=== PATIENT | female | born 1945 | race Caucasian/White ===

== ENCOUNTER 2016-07-17 22:46 | Emergency (ER) | payer OTHER ==
[2016-07-17 23:19] VITALS: RESP 16
--- NOTE | 2016-07-17 23:27 | EDPHY ---
H & P Time Seen by Provider: 07/17/16 22:48 HPI/ROS: CHIEF COMPLAINT: Alcohol intoxication HISTORY OF PRESENT ILLNESS: 71-year-old female presents to the emergency department by ambulance with acute alcohol intoxication. Patient admits to having several drinks this evening. She thinks that she is in the emergency department because she fell. She has no headache. No neck pain. No chest pain or difficulty breathing. Denies any other trauma or injury. She denies anticoagulant medication. Currently she has no complaints. REVIEW OF SYSTEMS: Constitutional: No fever, no chills. Eyes: No double or blurry vision. ENT: No sore throat. Respiratory: No cough, no shortness of breath. Cardiac: No chest pain. Gastrointestinal: No abdominal pain, vomiting or diarrhea. Genitourinary: No dysuria. Musculoskeletal: No neck or back pain. Skin: No rashes. Neurological: No headache. 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 No physical signs of trauma to her head. She is mentating normally and answering questions appropriately. She smells of alcohol. Eyes: Pupils equal and round. Extraocular motions are all intact. ENT: Mouth: Mucous membranes moist. Respiratory: No wheezing, rhonchi, or rales, lungs are clear to auscultation. Cardiovascular: Regular rate and rhythm. Gastrointestinal: Abdomen is soft and nontender, no masses, no rebound or guarding, bowel sounds normal. Neurological: Alert and oriented x 3, cranial nerves II through XII grossly intact Skin: Warm and dry, no rashes. Musculoskeletal: Nontender to palpate along the cervical, thoracic or lumbar spine. Neck is supple. Extremities: Full range of motion and no peripheral edema. Psychiatric: Patient is oriented X 3, there is no agitation. Constitutional: Initial Vital Signs Temperature (C) 36.3 C 07/17/16 23:07 Heart Rate 68 07/17/16 23:07 Respiratory Rate 16 07/17/16 23:07 Blood Pressure 148/98 H 07/17/16 23:07 O2 Sat (%) 91 L 07/17/16 23:07 O2 Delivery Mode Room Air Allergies/Adverse Reactions: No Allergies [NKDA] Allergy (Verified 07/17/16 23:25) Home Medications: Medication Instructions Recorded NO HOME MEDICATIONS 09/07/10 Medical Decision Making ED Course/Re-evaluation: 71-year-old female presents to the emergency department with acute alcohol intoxication. Patient was able to ambulate unassisted. She has no complaints. The nurse talked with the daughter on the phone and states that since the patient had her CVA over 20 years ago, the patient has become an alcoholic. She drinks daily. Daughter states that this is not abnormal behavior for her. The patient has been medically cleared and is awaiting transport back home. The nurse spoke with the patient's daughter via phone. The daughter is refusing to come pick the patient up. She the patient will be [facility] to the [facility]. Differential Diagnosis: Altered mental status including but not limited to hypoglycemia, infectious process, electrolyte abnormality, head injury and intoxicants. Departure - Departure Disposition: Home, Routine, Self-Care Clinical Impression: Alcoholic intoxication Qualifiers: Complication of substance-induced condition: uncomplicated Qualified Code(s): F10.120 - Alcohol abuse with intoxication, uncomplicated Condition: Good Instructions: Alcohol Intoxication (ED), Abuse of Alcohol (ED) Additional Instructions: You should not drink alcohol in excess. Referrals: [facility] [Outside] - As per Instructions
[2016-07-18 00:31] VITALS: BP 146/66; PULSE 58; TEMP 97.5; O2SAT 98
== END 2016-07-18 00:45 | disposition home or self-care (01) ==
LOC: EDUNIT#
DX: F10.120 Alcohol abuse with intoxication, uncomplicated (principal); F17.200 Nicotine dependence, unspecified, uncomplicated; Z86.73 Personal history of transient ischemic attack (TIA), and cerebral infarction without residual deficits

== ENCOUNTER 2018-03-28 11:50 | Emergency (ER) | payer OTHER, MEDICAID ==
--- NOTE | 2018-03-28 11:56 | EDPHY ---
H & P Time Seen by Provider: 03/28/18 11:54 HPI/ROS: CHIEF COMPLAINT: Head injury, expressive aphasia HISTORY OF PRESENT ILLNESS: 72-year-old female with prior intracranial hemorrhage and residual left-sided weakness presents as a stroke alert after a fall with difficulty speaking. She was walking across a crosswalk, slipped on ice and fell backwards, striking her head on the icy patch. EMS arrived and the patient refused transport, stating that she felt fine. EMS drove her to the [facility] and a friend met her there. She was unable to hear well and had difficulty speaking to her friend, so EMS was called again. She currently feels that her speech and hearing are normal. She has ongoing left-sided weakness, with no recent change. Denies headache. REVIEW OF SYSTEMS: complete 10 point ROS reviewed and is negative except for the noted elements in the HPI Source: Patient - Medical/Surgical History Hx Asthma: No Hx Chronic Respiratory Disease: No Hx Diabetes: No Hx Cardiac Disease: No Hx Renal Disease: No Hx Cirrhosis: No Hx Alcoholism: Yes Hx HIV/AIDS: No Hx Splenectomy or Spleen Trauma: No Other PMH: I[facility] 2015 - Social History Smoking Status: Current every day smoker Alcohol Use: Sober Drug Use: None Additional Social History: - Physical Exam Exam: Initial exam on arrival: General Appearance: Alert, pleasant, speech is clear and fluent Eyes: Pupils equal and round, no conjunctival pallor ENT, Mouth: Mucous membranes moist Neck: In cervical spine collar Respiratory: Lungs are clear to auscultation anteriorly Cardiovascular: Regular rate and rhythm Gastrointestinal: Abdomen is soft and nontender Neurological: A&O, normal speech, left-sided weakness Skin: Warm and dry Extremities: Normal inspection Psychiatric: Mood and affect normal Constitutional: Initial Vital Signs Heart Rate 78 03/28/18 12:10 Respiratory Rate 18 03/28/18 12:10 Blood Pressure 177/101 H 03/28/18 12:10 O2 Sat (%) 96 03/28/18 12:10 O2 Delivery Mode Room Air Allergies/Adverse Reactions: No Allergies [NKDA] Allergy (Verified 03/28/18 12:10) Home Medications: Medication Instructions Recorded NO HOME MEDICATIONS 09/07/10 Medical Decision Making - Diagnostics EKG Interpretation: EKG interpreted by me reveals NSR, rate 74, inferior Q waves c/w prior IMI, prolonged QT interval. Imaging Results: Head CT 03/28/18 11:52 Impression: 1. No acute intracranial process or cervical spine fracture. 2. Cystic encephalomalacia of the right MCA territory. Superimposed acute infarct in this region cannot be excluded by imaging. 3. Mild spondylosis of the cervical spine with intervally advanced grade 1 anterolisthesis of C4 on C5, probably degenerative. Findings and recommendations discussed with CHRISTINE ARMENDARIZ at 1223 hour, 2018. Cervical Spine CT 03/28/18 11:53 Impression: 1. No acute intracranial process or cervical spine fracture. 2. Cystic encephalomalacia of the right MCA territory. Superimposed acute infarct in this region cannot be excluded by imaging. 3. Mild spondylosis of the cervical spine with intervally advanced grade 1 anterolisthesis of C4 on C5, probably degenerative. Findings and recommendations discussed with CHRISTINE ARMENDARIZ at 1223 hour, 2018. Imaging: Discussed imaging studies w/ call center trainer Radiologist ED Course/Re-evaluation: This patient presents as a stroke alert. I saw the patient on arrival. Speech is clear and she has ongoing left-sided weakness secondary to prior CVA, without recent change. Sx c/w CHI, no clinical evidence for stroke. tpa not indicated. CT scan of the brain reveals right encephalomalacia, no acute hemorrhage or infarct. CT of the cervical spine reveals no acute findings. Results discussed with the patient and the cervical spine was cleared by me after the negative CT scan of the cervical spine. No midline tenderness and ROM without pain. Clinical presentation consistent with closed head injury. Repeat neurologic exam remains unchanged. She has clear speech and can clearly tell me exactly what happened this afternoon. According to the ED RN, the patient is perseverating slightly, though I have not noticed this. 1330: Repeat neuro exam: alert, oriented x 3, CN II-XII intact, motor: left sided weakness, sensory intact to light touch, steady gait. We are awaiting her daughter. 1430: daughter is planning to knot picker cloth pt around 5pm (after work). Pt remains stable, asymptomatic, ready to go home. CHI precautions given. Differential Diagnosis: Altered mental status including but not limited to hypoglycemia, infectious process, electrolyte abnormality, head injury, CVA, and intoxicants. - Data Points Laboratory Results: Laboratory Results 03/28/18 11:56 03/28/18 11:56 Point of Care Test Results: Chemistry 03/28/18 03/28/18 11:59 11:56 POC Sodium 144 mEq/L mEq/L (135-145) POC Potassium 4.0 mEq/L mEq/L (3.3-5.0) POC Chloride 103 mEq/L mEq/L (97-110) POC BUN 9 mg/dL mg/dL (7-23) POC Creatinine 0.8 mg/dL mg/dL (0.6-1.0) POC Glucose 140 mg/dL H mg/dL (70-100) POC Troponin I 0.02 ng/mL ng/mL (0.00-0.08) ISTAT H&H 03/28/18 11:56 POC Hgb 16.7 gm/dL H gm/dL (12.6-16.3) POC Hct 49 % H % (38-47) Departure - Departure Disposition: Home, Routine, Self-Care Clinical Impression: Concussion Qualifiers: Encounter type: initial encounter Loss of consciousness presence/duration: without LOC Qualified Code(s): S06.0X0A - Concussion without loss of consciousness, initial encounter Condition: Good Instructions: Concussion (ED) Additional Instructions: 1. Cognitive rest while symptomatic. Limit screen time (phone, TV, computer) until symptoms resolve. 2. Limit physical activities that could lead to head injury until symptoms have completely resolved. Wear a helmet when skiing and biking. 3. Use Tylenol and ibuprofen as directed on the packaging as needed for pain for the next few days. 4. Follow up with your primary care provider and/or head injury specialist if you have persisting symptoms for more than 10 days. 5. Return to the ED for severe headache, weakness or numbness on one side of your body, or other worsening of condition. Referrals: Jodi Mckeon DO [Doctor of Osteopathy] - As per Instructions
[2018-03-28 12:26] LABS: PLATELET COUNT 271 10^3/uL (150-400)
[2018-03-28 12:38] LABS: INR 0.99 (0.83-1.16); PROTIME(PATIENT) 13.3 SEC (12.0-15.0)
--- NOTE | 2018-03-28 14:46 | CPEKG ---
Test Reason : OPEN Blood Pressure : / mmHG Vent. Rate : 074 BPM Atrial Rate : 074 BPM P-R Int : 181 ms QRS Dur : 098 ms QT Int : 457 ms P-R-T Axes : 066 003 091 degrees QTc Int : 507 ms Sinus rhythm Inferior infarct, old Lateral leads are also involved Prolonged QT interval Confirmed by Luna Ko ([id number]) on 03/28/2018 2:46:17 PM Referred By: Confirmed By:Luna Ko
[2018-03-28 16:09] VITALS: BP 144/93
== END 2018-03-28 16:20 | disposition home or self-care (01) ==
LOC: EDUNIT#
DX: S06.0X0A Concussion without loss of consciousness, initial encounter (principal); G93.89 Other specified disorders of brain; F17.200 Nicotine dependence, unspecified, uncomplicated; W00.0XXA Fall on same level due to ice and snow, initial encounter; Y92.488 Other paved roadways as the place of occurrence of the external cause; Y93.01 Activity, walking, marching and hiking; Y99.9 Unspecified external cause status
CPT/HCPCS: 82435-PO; 82565-PO; 82947-PO; 84132-PO; 84295-PO; 84484-ER; 84520-PO; 85014-ER; G0480